=== PATIENT | female | born 1970 ===

== ENCOUNTER 2016-07-27 23:49 | Emergency (ER) | payer OTHER ==
[~2016-07-27 23:49] MED LIST: Propofol 10,000 mCg/mL 100 mL Inj ONE
[2016-07-27] MEDS ORDERED: Ketamine 10 mg/mL 20 mL Inj ONE (23:50)
[2016-07-27 23:55] LABS: Mean Corpuscular Hemoglobin 31.7 pg (27.0-35.0); Platelet Count 387 bil/L (150-400)
[2016-07-28] MEDS ORDERED: 0.9% Sodium Chloride 1,000 ML IV SCH (00:10)
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
[2016-07-28 00:14] LABS: BASOPHILS % (AUTO) 1 % (0-3); EOSINOPHILS % (AUTO) 1 % (0-5); MONOCYTES % (AUTO) 6 % (4-12); NEUTROPHILS % (AUTO) 58 % (40-74)
[2016-07-28 00:22] LABS: TROPONIN T 0.01 ug/L (0.0-0.011)
[2016-07-28 00:29] VITALS: BP 106/62; PULSE 84; RESP 26; O2SAT 97
[2016-07-28 00:29] LABS: INR 0.95 ratio
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
== END 2016-07-28 00:22 | disposition short-term general hospital (02) ==
LOC: SED 23:49
DX: S09.8XXA Other specified injuries of head, initial encounter (principal); R40.2430 Glasgow coma scale score 3-8, unspecified time; S49.91XA Unspecified injury of right shoulder and upper arm, initial encounter; S01.01XA Laceration without foreign body of scalp, initial encounter; V48.5XXA Car driver injured in noncollision transport accident in traffic accident, initial encounter; Y93.89 Activity, other specified; Y99.8 Other external cause status; Y92.410 Unspecified street and highway as the place of occurrence of the external cause
CPT/HCPCS: 29125; 36415; 51702; 71010; 72170; 73100; 80053; 81025; 84484; 85025; 85610; 94799; 99291; G0390; G0480